=== PATIENT | female | born 1975 | race Caucasian/White ===

== ENCOUNTER 2017-08-22 00:03 | Inpatient (IN) | payer OTHER ==
[2017-08-22 02:52] VITALS: BMI 28.5
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
[2017-08-22] MEDS ORDERED: MAGNESIUM CITRATE 300 ML BOTTLE PO PRN (03:24)
[2017-08-22] MEDS ORDERED: guaiFENesin/D-METHORPHAN HB 10 ML UNIT-DOSE CUPS PO PRN (03:24)
[2017-08-22] MEDS ORDERED: IBUPROFEN 400 MG TABLET (FP) PO PRN (03:24)
[2017-08-22] MEDS ORDERED: chlordiazePOXIDE HCL 25 MG CAPSULE PO ONE (03:24)
[2017-08-22] MEDS ORDERED: P-EPHED 60MG/TRIPROLIDI 2.5MG TABLET PO PRN (03:24)
[2017-08-22] MEDS ORDERED: MAG HYDROX/AL HYDROX/SIMETH 30 ML UNIT-DOSE CUP PO PRN (03:24)
[2017-08-22] MEDS ORDERED: LOPERAMIDE HCL 2 MG CAPSULE PO PRN (03:24)
[2017-08-22] MEDS ORDERED: chlordiazePOXIDE HCL 25 MG CAPSULE PO PRN (03:24)
[2017-08-22] MEDS ORDERED: MAGNESIUM HYDROX 2400MG/30ML ORAL SUSPENSION 30 ML CUP PO PRN (03:24)
[2017-08-22] MEDS ORDERED: ACETAMINOPHEN 325 MG TABLET (FP) PO PRN (03:24)
[2017-08-22] MEDS ORDERED: NICOTINE POLACRILEX 2 MG GUM BC PRN (03:24)
[2017-08-22] MEDS ORDERED: MENTHOL/PHENOL 1 EACH UD MM PRN (03:24)
[2017-08-22] MEDS: chlordiazePOXIDE HCL 25 MG CAPSULE PO SCH ×4 (06:09→22:44)
--- NOTE | 2017-08-22 09:22 | EKG ---
Test Reason : Blood Pressure : / mmHG Vent. Rate : 060 BPM Atrial Rate : 060 BPM P-R Int : 104 ms QRS Dur : 084 ms QT Int : 418 ms P-R-T Axes : -34 072 068 degrees QTc Int : 418 ms UNUSUAL P AXIS, POSSIBLE ECTOPIC ATRIAL RHYTHM WITH PREMATURE ATRIAL COMPLEXES MINIMAL VOLTAGE CRITERIA FOR LVH, MAY BE NORMAL VARIANT ABNORMAL ECG NO PREVIOUS ECGS AVAILABLE Confirmed by REGINA MALONEY, HAYDEE ([id number]) on 08/22/2017 9:21:47 AM Referred By: Berry Mckenzie Confirmed By:HAYDEE TAPIA MD
[2017-08-22 10:05] LABS: HEMATOCRIT 34.5 % (32.4-45.2); HEMOGLOBIN 11.8 GM/dL (10.7-15.3); MCH 30.5 pg (25.7-33.7); MCHC 34.2 g/dl (32.0-36.0); MEAN CELL VOLUME 89.3 fl (80-96); MEAN PLT VOLUME 8.7 fl (7.5-11.1); PLATELET COUNT 294 K/MM3 (134-434); RBC 3.86 M/mm3 (3.60-5.2); RDW 13.7 % (11.6-15.6); WHITE BLOOD COUNT 5.1 K/mm3 (4.0-10.0)
[2017-08-22 10:15] LABS: URINE APPEARANCE CLOUDY; URINE BILIRUBIN NEGATIVE (<2.0 mg/dL); URINE COLOR YELLOW; URINE GLUCOSE (UA) NEGATIVE (NEGATIVE); URINE KETONE NEGATIVE (NEGATIVE); URINE LEUK ESTERASE NEGATIVE (NEGATIVE); URINE NITRITE NEGATIVE (NEGATIVE)
[2017-08-22 10:16] LABS: URINE PROTEIN 2+ (NEGATIVE)
[2017-08-22] MEDS: PRENATAL VITAMINS W/ FOLIC ACID TABLET (FP) PO SCH (10:20)
[2017-08-22] MEDS: NICOTINE 14 MG/24 HOURS TOPICAL PATCH TD SCH (10:22)
[2017-08-22 10:24] LABS: EPI CELLS MANY /HPF (FEW); URINE BACTERIA FEW /hpf (NONE SEEN)
[2017-08-22 10:38] LABS: CHLORIDE 113 mmol/L (98-107); SODIUM 143 mmol/L (136-145)
[2017-08-22 11:06] LABS: ALBUMIN 2.7 g/dl (3.4-5.0); ALK PHOS 75 U/L (45-117); ANION GAP 7 (8-16); BILIRUBIN,TOTAL 0.5 mg/dL (0.2-1.0); BLOOD UREA NITROGEN 14 mg/dL (7-18); CALCIUM 8.3 mg/dL (8.5-10.1); CO2 23 mmol/L (21-32); CREATININE 0.7 mg/dL (0.55-1.02); GLUCOSE,RANDOM 97 mg/dL (74-106); SGOT/AST 18 U/L (15-37); SGPT/ALT 17 U/L (12-78); TOT PROT 5.8 g/dl (6.4-8.2)
--- NOTE | 2017-08-22 15:23 | PN ---
[facility] CIWA - CIWA Score Nausea/Vomitin Muscle Tremors: 3 Anxiety: 3 Agitation: 2 Paroxysmal Sweats: 1-Minimal Palms Moist Orientation: 0-Oriented Tacttile Disturbances: 1-Very Mild Itch/Numbness Auditory Disturbances: 1-Very Mild Visual Disturbances: 0-None Headache: 2-Mild CIWA-Ar Total Score: 16 S Progress Note (SOAP) Subjective: ALERT,IRRITABLE,ANXIOUS,INTERRUPTED SLEEP,TREMOR,PAIN IN THE BODY Objective: 08/22/17 15:20 Vital Signs Temperature 98.4 F 08/22/17 14:00 Pulse Rate 83 08/22/17 14:00 Respiratory Rate 16 08/22/17 14:00 Blood Pressure 104/82 08/22/17 14:00 O2 Sat by Pulse Oximetry (%) EKG SINUS RHYTHM WITH SINUS ARRHYTHMIA LVH PROLONG QT 422/424 NO CHEST PIAN,NO SOB,NO DIZZINESS Laboratory Last Values WBC 5.1 K/mm3 (4.0-10.0) 08/22/17 08:00 RBC 3.86 M/mm3 (3.60-5.2) 08/22/17 08:00 Hgb 11.8 GM/dL (10.7-15.3) 08/22/17 08:00 Hct 34.5 % (32.4-45.2) 08/22/17 08:00 MCV 89.3 fl (80-96) 08/22/17 08:00 MCH 30.5 pg (25.7-33.7) 08/22/17 08:00 MCHC 34.2 g/dl (32.0-36.0) 08/22/17 08:00 RDW 13.7 % (11.6-15.6) 08/22/17 08:00 Plt Count 294 K/MM3 (134-434) 08/22/17 08:00 MPV 8.7 fl (7.5-11.1) 08/22/17 08:00 Sodium 143 mmol/L (136-145) 08/22/17 08:00 Potassium 4.0 mmol/L (3.5-5.1) 08/22/17 08:00 Chloride 113 mmol/L (98-107) H 08/22/17 08:00 Carbon Dioxide 23 mmol/L (21-32) 08/22/17 08:00 Anion Gap 7 (8-16) L 08/22/17 08:00 BUN 14 mg/dL (7-18) 08/22/17 08:00 Creatinine 0.7 mg/dL (0.55-1.02) 08/22/17 08:00 Creat Clearance w eGFR > 60 (>60) 08/22/17 08:00 Random Glucose 97 mg/dL (74-106) 08/22/17 08:00 Calcium 8.3 mg/dL (8.5-10.1) L 08/22/17 08:00 Total Bilirubin 0.5 mg/dL (0.2-1.0) 08/22/17 08:00 AST 18 U/L (15-37) 08/22/17 08:00 ALT 17 U/L (12-78) 08/22/17 08:00 Alkaline Phosphatase 75 U/L (45-117) 08/22/17 08:00 Total Protein 5.8 g/dl (6.4-8.2) L 08/22/17 08:00 Albumin 2.7 g/dl (3.4-5.0) L 08/22/17 08:00 Urine Color Yellow 08/22/17 08:00 Urine Appearance Cloudy 08/22/17 08:00 Urine pH 7.0 (5.0-8.0) 08/22/17 08:00 Ur Specific [place] 1.021 (1.001-1.035) 08/22/17 08:00 Urine Protein 2+ (NEGATIVE) H 08/22/17 08:00 Urine Glucose (UA) Negative (NEGATIVE) 08/22/17 08:00 Urine Ketones Negative (NEGATIVE) 08/22/17 08:00 Urine Blood Negative (NEGATIVE) 08/22/17 08:00 Urine Nitrite Negative (NEGATIVE) 08/22/17 08:00 Urine Bilirubin Negative (<2.0 mg/dL) 08/22/17 08:00 Urine Urobilinogen 2.0 mg/dL (0.2-1.0) H 08/22/17 08:00 Ur Leukocyte Esterase Negative (NEGATIVE) 08/22/17 08:00 Urine WBC (Auto) 4 /hpf (3-5) 08/22/17 08:00 Urine RBC (Auto) 3 /hpf (0-3) 08/22/17 08:00 Ur Epithelial Cells Many /HPF (FEW) 08/22/17 08:00 Urine Bacteria Few /hpf (NONE SEEN) 08/22/17 08:00 RPR Titer Nonreactive (NONREACTIVE) 08/22/17 08:00 Assessment: 08/22/17 15:23 WITHDRAWAL SYMPTOM Plan: CONTINUE DETOX
--- NOTE | 2017-08-22 15:38 | EKG ---
Test Reason : Blood Pressure : / mmHG Vent. Rate : 066 BPM Atrial Rate : 066 BPM P-R Int : 110 ms QRS Dur : 086 ms QT Int : 414 ms P-R-T Axes : 033 068 062 degrees QTc Int : 434 ms SINUS RHYTHM WITH MARKED SINUS ARRHYTHMIA WITH SHORT TN OTHERWISE NORMAL ECG WHEN COMPARED WITH ECG OF 22-AUG-2017 04:32, SINUS RHYTHM HAS REPLACED ECTOPIC ATRIAL RHYTHM Confirmed by REGINA MALONEY, HAYDEE ([id number]) on 08/22/2017 3:38:04 PM Referred By: Berry Mckenzie Confirmed By:HAYDEE TAPIA MD
[2017-08-22] MEDS: THIAMINE HCL 100 MG TABLET (FP) PO SCH (22:44)
[2017-08-22] MEDS: MELATONIN 5 MG TABLETS PO PRN (22:46)
[2017-08-23] MEDS: chlordiazePOXIDE HCL 25 MG CAPSULE PO SCH ×4 (05:51→22:23)
[2017-08-23] MEDS: PRENATAL VITAMINS W/ FOLIC ACID TABLET (FP) PO SCH (10:10)
[2017-08-23] MEDS: NICOTINE 14 MG/24 HOURS TOPICAL PATCH TD SCH (10:11)
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
--- NOTE | 2017-08-23 16:35 | PN ---
S CIWA - CIWA Score Nausea/Vomitin Muscle Tremors: 3 Anxiety: 3 Agitation: 2 Paroxysmal Sweats: 3 Orientation: 0-Oriented Tacttile Disturbances: 1-Very Mild Itch/Numbness Auditory Disturbances: 0-None Visual Disturbances: 0-None Headache: 2-Mild CIWA-Ar Total Score: 16 S Progress Note (SOAP) Subjective: Body ache, sweating, chills, interrupted sleep Objective: 08/23/17 16:33 Last Vital Signs Temp Pulse Resp BP Pulse Ox 96.9 F L 79 14 128/71 08/23/17 14:00 08/23/17 14:00 08/23/17 14:00 08/23/17 14:00 Laboratory Tests 08/22/17 08/22/17 08/22/17 08:00 08:00 08:00 WBC 5.1 RBC 3.86 Hgb 11.8 Hct 34.5 MCV 89.3 MCH 30.5 MCHC 34.2 RDW 13.7 Plt Count 294 MPV 8.7 Sodium 143 Potassium 4.0 Chloride 113 H Carbon Dioxide 23 Anion Gap 7 L BUN 14 Creatinine 0.7 Creat Clearance w eGFR > 60 Random Glucose 97 Calcium 8.3 L Total Bilirubin 0.5 AST 18 ALT 17 Alkaline Phosphatase 75 Total Protein 5.8 L Albumin 2.7 L Urine Color Urine Appearance Urine pH Ur Specific [place] Urine Protein Urine Glucose (UA) Urine Ketones Urine Blood Urine Nitrite Urine Bilirubin Urine Urobilinogen Ur Leukocyte Esterase Urine WBC (Auto) Urine RBC (Auto) Ur Epithelial Cells Urine Bacteria RPR Titer Nonreactive 08/22/17 08:00 WBC RBC Hgb Hct MCV MCH MCHC RDW Plt Count MPV Sodium Potassium Chloride Carbon Dioxide Anion Gap BUN Creatinine Creat Clearance w eGFR Random Glucose Calcium Total Bilirubin AST ALT Alkaline Phosphatase Total Protein Albumin Urine Color Yellow Urine Appearance Cloudy Urine pH 7.0 Ur Specific [place] 1.021 Urine Protein 2+ H Urine Glucose (UA) Negative Urine Ketones Negative Urine Blood Negative Urine Nitrite Negative Urine Bilirubin Negative Urine Urobilinogen 2.0 H Ur Leukocyte Esterase Negative Urine WBC (Auto) 4 Urine RBC (Auto) 3 Ur Epithelial Cells Many Urine Bacteria Few RPR Titer Labs reviewed: UA shows proteinuria Assessment: 08/23/17 16:33 Withdrawal symptoms UA shows proteinuria Plan: Continue detox Proteinuria: encouraged PO hydration (water), repeat UA
[2017-08-23] MEDS: THIAMINE HCL 100 MG TABLET (FP) PO SCH (22:23)
[2017-08-23] MEDS: MELATONIN 5 MG TABLETS PO PRN (22:23)
[2017-08-24] MEDS: chlordiazePOXIDE 5 MG CAPSULE PO SCH ×4 (05:54→22:41)
[2017-08-24 10:00] LABS: URINE APPEARANCE SLCLOUDY; URINE BILIRUBIN NEGATIVE (<2.0 mg/dL); URINE COLOR LTYELLOW; URINE GLUCOSE (UA) NEGATIVE (NEGATIVE); URINE KETONE NEGATIVE (NEGATIVE); URINE LEUK ESTERASE NEGATIVE (NEGATIVE); URINE NITRITE NEGATIVE (NEGATIVE); URINE PROTEIN NEGATIVE (NEGATIVE); URINE UROBILINOGEN NEGATIVE mg/dL (0.2-1.0)
[2017-08-24] MEDS: ESCITALOPRAM OXALATE 10 MG TABLET (FP) PO SCH (10:45)
[2017-08-24] MEDS: PRENATAL VITAMINS W/ FOLIC ACID TABLET (FP) PO SCH (10:46)
[2017-08-24] MEDS: NICOTINE 14 MG/24 HOURS TOPICAL PATCH TD SCH (10:47)
--- NOTE | 2017-08-24 12:30 | PN ---
[facility] CIWA - CIWA Score Nausea/Vomitin-Mild Nausea/No Vomiting Muscle Tremors: 4-Moderate,w/Arms Extend Anxiety: 4-Mod. Anxious/Guarded Agitation: 4-Moderately Restless Paroxysmal Sweats: 1-Minimal Palms Moist Orientation: 0-Oriented Tacttile Disturbances: 0-None Auditory Disturbances: 0-None Visual Disturbances: 0-None Headache: 0-None Present CIWA-Ar Total Score: 14 S Progress Note (SOAP) Subjective: sweat tremor trouble sleep at night anxiety Objective: 08/24/17 12:34 Vital Signs Temperature 95.9 F L 08/24/17 10:20 Pulse Rate 75 08/24/17 10:20 Respiratory Rate 18 08/24/17 10:20 Blood Pressure 92/55 08/24/17 10:20 O2 Sat by Pulse Oximetry (%) Laboratory Last Values WBC 5.1 K/mm3 (4.0-10.0) 08/22/17 08:00 RBC 3.86 M/mm3 (3.60-5.2) 08/22/17 08:00 Hgb 11.8 GM/dL (10.7-15.3) 08/22/17 08:00 Hct 34.5 % (32.4-45.2) 08/22/17 08:00 MCV 89.3 fl (80-96) 08/22/17 08:00 MCH 30.5 pg (25.7-33.7) 08/22/17 08:00 MCHC 34.2 g/dl (32.0-36.0) 08/22/17 08:00 RDW 13.7 % (11.6-15.6) 08/22/17 08:00 Plt Count 294 K/MM3 (134-434) 08/22/17 08:00 MPV 8.7 fl (7.5-11.1) 08/22/17 08:00 Sodium 143 mmol/L (136-145) 08/22/17 08:00 Potassium 4.0 mmol/L (3.5-5.1) 08/22/17 08:00 Chloride 113 mmol/L (98-107) H 08/22/17 08:00 Carbon Dioxide 23 mmol/L (21-32) 08/22/17 08:00 Anion Gap 7 (8-16) L 08/22/17 08:00 BUN 14 mg/dL (7-18) 08/22/17 08:00 Creatinine 0.7 mg/dL (0.55-1.02) 08/22/17 08:00 Creat Clearance w eGFR > 60 (>60) 08/22/17 08:00 Random Glucose 97 mg/dL (74-106) 08/22/17 08:00 Calcium 8.3 mg/dL (8.5-10.1) L 08/22/17 08:00 Total Bilirubin 0.5 mg/dL (0.2-1.0) 08/22/17 08:00 AST 18 U/L (15-37) 08/22/17 08:00 ALT 17 U/L (12-78) 08/22/17 08:00 Alkaline Phosphatase 75 U/L (45-117) 08/22/17 08:00 Total Protein 5.8 g/dl (6.4-8.2) L 08/22/17 08:00 Albumin 2.7 g/dl (3.4-5.0) L 08/22/17 08:00 Urine Color Ltyellow 08/24/17 07:00 Urine Appearance Slcloudy 08/24/17 07:00 Urine pH 6.0 (5.0-8.0) 08/24/17 07:00 Ur Specific [place] 1.009 (1.001-1.035) 08/24/17 07:00 Urine Protein Negative (NEGATIVE) 08/24/17 07:00 Urine Glucose (UA) Negative (NEGATIVE) 08/24/17 07:00 Urine Ketones Negative (NEGATIVE) 08/24/17 07:00 Urine Blood Negative (NEGATIVE) 08/24/17 07:00 Urine Nitrite Negative (NEGATIVE) 08/24/17 07:00 Urine Bilirubin Negative (<2.0 mg/dL) 08/24/17 07:00 Urine Urobilinogen Negative mg/dL (0.2-1.0) 08/24/17 07:00 Ur Leukocyte Esterase Negative (NEGATIVE) 08/24/17 07:00 Urine WBC (Auto) 4 /hpf (3-5) 08/22/17 08:00 Urine RBC (Auto) 3 /hpf (0-3) 08/22/17 08:00 Ur Epithelial Cells Many /HPF (FEW) 08/22/17 08:00 Urine Bacteria Few /hpf (NONE SEEN) 08/22/17 08:00 RPR Titer Nonreactive (NONREACTIVE) 08/22/17 08:00 lab noted Assessment: 08/24/17 12:35 withdrawal sx Plan: continue detox
[2017-08-24] MEDS: THIAMINE HCL 100 MG TABLET (FP) PO SCH (22:41)
[2017-08-24] MEDS: MELATONIN 5 MG TABLETS PO PRN (22:43)
[2017-08-25] MEDS: chlordiazePOXIDE HCL 10 MG CAPSULE PO SCH ×2 (05:39→10:06)
--- NOTE | 2017-08-25 08:51 | DS ---
[facility] Detox Discharge Summary Admission Date: 08/22/17 Discharge Date: 08/25/17 - History Present History: Alcohol Dependence Additional Comments: 42 years old female admitted on 08/22/17 for alcohol withdrawal sx completed detox regimen tolerated detox regimen well denies alcohol withdrawal sx alert oriented x 3 no acute distress agrees to consider community support self management groups health teaching on addiction - Physical Exam Results Vital Signs: Vital Signs Temperature 97.5 F L 08/25/17 06:00 Pulse Rate 89 08/25/17 06:00 Respiratory Rate 18 08/25/17 06:00 Blood Pressure 120/57 08/25/17 06:00 O2 Sat by Pulse Oximetry (%) Pertinent Admission Physical Exam Findings: withdrawal sx Vital Signs Temperature 97.9 F 08/25/17 08:58 Pulse Rate 86 08/25/17 08:58 Respiratory Rate 18 08/25/17 08:58 Blood Pressure 111/72 08/25/17 08:58 O2 Sat by Pulse Oximetry (%) Laboratory Last Values WBC 5.1 K/mm3 (4.0-10.0) 08/22/17 08:00 RBC 3.86 M/mm3 (3.60-5.2) 08/22/17 08:00 Hgb 11.8 GM/dL (10.7-15.3) 08/22/17 08:00 Hct 34.5 % (32.4-45.2) 08/22/17 08:00 MCV 89.3 fl (80-96) 08/22/17 08:00 MCH 30.5 pg (25.7-33.7) 08/22/17 08:00 MCHC 34.2 g/dl (32.0-36.0) 08/22/17 08:00 RDW 13.7 % (11.6-15.6) 08/22/17 08:00 Plt Count 294 K/MM3 (134-434) 08/22/17 08:00 MPV 8.7 fl (7.5-11.1) 08/22/17 08:00 Sodium 143 mmol/L (136-145) 08/22/17 08:00 Potassium 4.0 mmol/L (3.5-5.1) 08/22/17 08:00 Chloride 113 mmol/L (98-107) H 08/22/17 08:00 Carbon Dioxide 23 mmol/L (21-32) 08/22/17 08:00 Anion Gap 7 (8-16) L 08/22/17 08:00 BUN 14 mg/dL (7-18) 08/22/17 08:00 Creatinine 0.7 mg/dL (0.55-1.02) 08/22/17 08:00 Creat Clearance w eGFR > 60 (>60) 08/22/17 08:00 Random Glucose 97 mg/dL (74-106) 08/22/17 08:00 Calcium 8.3 mg/dL (8.5-10.1) L 08/22/17 08:00 Total Bilirubin 0.5 mg/dL (0.2-1.0) 08/22/17 08:00 AST 18 U/L (15-37) 08/22/17 08:00 ALT 17 U/L (12-78) 08/22/17 08:00 Alkaline Phosphatase 75 U/L (45-117) 08/22/17 08:00 Total Protein 5.8 g/dl (6.4-8.2) L 08/22/17 08:00 Albumin 2.7 g/dl (3.4-5.0) L 08/22/17 08:00 Urine Color Ltyellow 08/24/17 07:00 Urine Appearance Slcloudy 08/24/17 07:00 Urine pH 6.0 (5.0-8.0) 08/24/17 07:00 Ur Specific [place] 1.009 (1.001-1.035) 08/24/17 07:00 Urine Protein Negative (NEGATIVE) 08/24/17 07:00 Urine Glucose (UA) Negative (NEGATIVE) 08/24/17 07:00 Urine Ketones Negative (NEGATIVE) 08/24/17 07:00 Urine Blood Negative (NEGATIVE) 08/24/17 07:00 Urine Nitrite Negative (NEGATIVE) 08/24/17 07:00 Urine Bilirubin Negative (<2.0 mg/dL) 08/24/17 07:00 Urine Urobilinogen Negative mg/dL (0.2-1.0) 08/24/17 07:00 Ur Leukocyte Esterase Negative (NEGATIVE) 08/24/17 07:00 Urine WBC (Auto) 4 /hpf (3-5) 08/22/17 08:00 Urine RBC (Auto) 3 /hpf (0-3) 08/22/17 08:00 Ur Epithelial Cells Many /HPF (FEW) 08/22/17 08:00 Urine Bacteria Few /hpf (NONE SEEN) 08/22/17 08:00 RPR Titer Nonreactive (NONREACTIVE) 08/22/17 08:00 lab noted - Treatment Hospital Course: Detox Protocol Followed, Detoxed Safely, Responded well, Discharged Condition Good, Rehab Referral Accepted Patient has Accepted a Rehab Referral to: [facility] as per counselor arranged - Medication Discharge Medications: Ambulatory Orders Escitalopram Oxalate [Lexapro -] 15 mg PO DAILY 08/22/17 - Diagnosis (1) Alcohol dependence with uncomplicated withdrawal Current Visit: Yes Status: Acute (2) Nicotine dependence Current Visit: Yes Status: Acute Qualifiers: Nicotine product type: cigarettes Substance use status: in withdrawal Qualified Code(s): F17.213 - Nicotine dependence, cigarettes, with withdrawal - AMA Did Patient Leave Against Medical Advice: No
[2017-08-25 08:59] VITALS: BP 111/72; PULSE 86; TEMP 97.9
[2017-08-25] MEDS: PRENATAL VITAMINS W/ FOLIC ACID TABLET (FP) PO SCH (10:06)
[2017-08-25] MEDS: ESCITALOPRAM OXALATE 10 MG TABLET (FP) PO SCH (10:06)
[2017-08-25] MEDS: NICOTINE 14 MG/24 HOURS TOPICAL PATCH TD SCH (10:07)
== END 2017-08-25 13:10 | disposition home or self-care (01) | DRG 774 ==
LOC: YASAS 00:03 → Y6N 00:45
PROVIDERS: ADMIT Internal Medicine; ATTEND Internal Medicine
PROC: HZ2ZZZZ Detoxification Services for Substance Abuse Treatment (ICD-10-PCS; principal; 2017-08-22)
DX: F10.230 Alcohol dependence with withdrawal, uncomplicated (principal); F14.20 Cocaine dependence, uncomplicated; F17.213 Nicotine dependence, cigarettes, with withdrawal; F32.9 Major depressive disorder, single episode, unspecified; R80.9 Proteinuria, unspecified; I49.9 Cardiac arrhythmia, unspecified; I45.81 Long QT syndrome; Z91.5 Personal history of self-harm
CPT/HCPCS: 36415; 80053; 81003; 81015; 85027; 86593; 93005; 93010